=== PATIENT | male | born 1955 | race Asian ===

== ENCOUNTER 2024-03-11 18:21 | Emergency (ER) | payer MEDICARE ==
[~2024-03-11] VITALS: Ht 177.8 cm; Wt 118.2 kg
[2024-03-11 18:31] VITALS: TEMP 98.1
[2024-03-11] MEDS ORDERED: LOSA-381 PO (18:37)
[2024-03-11] MEDS ORDERED: ATOR20TA PO (18:37)
[2024-03-11] MEDS ORDERED: LOSA-382 PO (18:48)
[2024-03-11] MEDS ORDERED: HYDR25TA2 PO (18:48)
[2024-03-11] MEDS: ACETAMINOPHEN 500 MG TABLET PO ONE (19:03)
[2024-03-11] MEDS: MECLIZINE HCL 25 MG TABLET PO ONE (19:04)
[2024-03-11] MEDS: ONDANSETRON HCL 4 MG/2 ML VIAL IVP ONE (19:05)
[2024-03-11] MEDS: SODIUM CHLORIDE 0.9% 1,000 ML IV ONE (19:05)
[2024-03-11 19:49] LABS: ANION GAP 4 mmol/L (8-16); CALCIUM, TOTAL 8.7 mg/dL (8.8-10.5); CARBON DIOXIDE 31 mmol/L (22-29); CHLORIDE 103 mmol/L (98-107); CREATININE 0.78 mg/dL (0.60-1.30); GLOMERULAR FILTR. RATE CALC > 60 mL/min (>60); GLUCOSE,RANDOM 144 mg/dL (70-110); POTASSIUM 3.5 mmol/L (3.5-5.1); SODIUM SERUM 138 mmol/L (136-145); UREA NITROGEN, BLOOD 23 mg/dL (7-18)
[2024-03-11 19:56] LABS: BASOPHILS % (AUTO) 0.4 % (0.0-2.0); EOSINOPHILS % (AUTO) 0.7 % (1.0-6.0); HEMATOCRIT 38.6 % (41-53); HEMOGLOBIN 12.6 g/dL (13.5-17.5); LYMPHOCYTES # (AUTO) 1.4 K/uL (1.0-4.8); MEAN CORPUSCULAR HEMOGLOBIN 29.9 pg (26.0-34.0); MEAN CORPUSCULAR HGB CONC 32.7 G/dL (31.0-37.0); MEAN CORPUSCULAR VOLUME 91 fL (80-100); MONOCYTES # (AUTO) 0.7 K/uL (0.1-1.0); MONOCYTES % (AUTO) 6.2 % (2.0-9.0); NEUTROPHILS # (AUTO) 8.9 K/uL (1.8-7.7); NEUTROPHILS % (AUTO) 79.7 % (40.0-70.0); PLATELET COUNT (AUTO) 149 K/uL (150-450); RED BLOOD CELL COUNT(AUTO) 4.22 MIL/uL (4.50-5.90); RED CELL DISTRIBUTION WIDTH 14.5 % (11.5-14.5); WHITE BLOOD COUNT (AUTO) 11.1 K/uL (4.5-11.0)
[2024-03-11 19:57] LABS: TROPONIN I-HIGH SENSITIVITY 5 ng/L (<76)
[2024-03-11 21:50] LABS: COVID AG,FIA SOURCE NASAL SWAB
[2024-03-11 22:20] LABS: SARS-COV2 (COVID) ANTIGEN,FIA Negative (Negative)
[2024-03-12 00:10] VITALS: BP 140/68; PULSE 77; RESP 16
== END 2024-03-12 00:38 | disposition short-term general hospital (02) ==
LOC: EMS 18:23
DX: R55 Syncope and collapse (principal); E78.00 Pure hypercholesterolemia, unspecified; I10 Essential (primary) hypertension; Z20.822 Contact with and (suspected) exposure to COVID-19
CPT/HCPCS: 99291; 96374; 70450; 96361; 87426; 80048; 83880; 84484; 85025; 36415; 71045; 93005; J2405; J7030